=== PATIENT | female | born 2000 | race Caucasian/White ===

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

== ENCOUNTER 2018-02-13 16:36 | Emergency (ER) | payer MEDICAID ==
[~2018-02-13] VITALS: Ht 172.7 cm; Wt 56.8 kg
[~2018-02-13 16:36] MED LIST changes: +HYDR-4383 PO; -HYDR-569 PO
[2018-02-13] MEDS ORDERED: normal saline 1000ML IV soln IVB ONE (16:55)
[2018-02-13] MEDS ORDERED: ondansetron/PF 4mg/2ml inj IV ONE (16:55)
[2018-02-13 17:13] LABS: BASOPHILS # (AUTO) 0.1 X10'3 (0-0.2); BASOPHILS % (AUTO) 1.7 % (0-1); EOSINOPHILS % (AUTO) 0 % (0-6); HEMATOCRIT 42.1 % (35.0-45.0); HEMOGLOBIN 14.3 g/dl (12.0-16.0); LYMPHOCYTES # (AUTO) 1.6 X10'3 (1.1-4.8); LYMPHOCYTES % (AUTO) 19.9 % (21-51); MEAN PLATELET VOLUME 9.4 FL (7.4-10.4); MONOCYTES # (AUTO) 0.5 X10'3 (0-0.9); MONOCYTES % (AUTO) 6.1 % (2-12); NEUTROPHILS % (AUTO) 72.3 % (42-75); PLATELET COUNT 255 X10'3 (140-440); RED BLOOD COUNT 4.34 X10'6 (4.20-5.60); RED CELL DISTRIBUTION WIDTH 12.8 % (11.5-14.5); WHITE BLOOD COUNT 8.2 X10'3 (4.5-11.0)
[2018-02-13] MEDS ORDERED: pantoprazole 40 MG vial IV ONE (17:15)
[2018-02-13 17:17] VITALS: BP 135/92
[2018-02-13 17:23] LABS: URINE HCG NEGATIVE (NEG)
[2018-02-13 17:25] LABS: INR 1.1 INR; PROTHROMBIN TIME 11.5 SECONDS (9.0-12.0)
[2018-02-13 17:27] LABS: CLARITY,URINE CLOUDY (Clear); COLOR,URINE YELLOW (Yellow); GLUCOSE, URINE NEGATIVE (Neg); KETONES,URINE NEGATIVE (Neg); LEUKOCYTE ESTERASE ,URINE MODERATE (Neg); NITRITES, URINE NEGATIVE (Neg); OCCULT BLOOD,URINE NEGATIVE (Neg); PROTEIN,URINE TRACE mg/dl (Neg)
[2018-02-13 17:28] LABS: ALANINE AMINOTRANSFERASE 20 U/L (12-78); ALBUMIN 4.4 G/DL (3.4-5.0); ALBUMIN/GLOBULIN RATIO 1.5 (1.1-1.5); ALKALINE PHOSPHATASE 68 IU/L (20-180); ANION GAP 9 (8-16); ASPARTATE AMINO TRANSFERASE 16 U/L (10-37); BILIRUBIN,TOTAL 0.8 MG/DL (0.1-1.0); BLOOD UREA NITROGEN 11 MG/DL (7-18); BUN/CREATININE RATIO 13.3 (6.6-38.0); CHLORIDE 104 MMOL/L (99-107); CREATININE 0.83 MG/DL (0.40-0.90); GLUCOSE 90 MG/DL (70-104); POTASSIUM 3.3 MMOL/L (3.5-5.1); SODIUM 141 MMOL/L (135-145); TOTAL CARBON DIOXIDE 28.3 MMOL/L (24-32); TOTAL PROTEIN 7.4 G/DL (6.4-8.2); eGFR 89 ML/MIN
[2018-02-13 17:33] LABS: UA COLLECTION TYPE CLN CATCH MIDSTREAM
[2018-02-13 17:36] LABS: URINE AMPHETAMINE SCREEN NEGATIVE (Neg); URINE BARBITUATE SCREEN NEGATIVE (Neg); URINE BENZODIAZEPINES SCREEN NEGATIVE (Neg); URINE CANNABINOID SCREEN NEGATIVE (Neg); URINE COCAINE SCREEN NEGATIVE (Neg); URINE METHADONE SCREEN NEGATIVE (Neg); URINE OPIATE SCREEN NEGATIVE (Neg); URINE PHENCYCLIDINE SCREEN NEGATIVE (Neg)
[2018-02-13 17:39] LABS: WBC,URINE 30-50 /HPF (0-4)
[2018-02-13 17:40] LABS: BACTERIA,URINE 2+ /HPF (Neg); MUCUS STRANDS MODERATE /LPF (Neg); RBC,URINE 0-2 /HPF (0-2); SQUAMOUS EPITHELIAL CELL,UR MANY /LPF (FEW)
[2018-02-13] MEDS ORDERED: ketorolac trometh. 30mg/ml inj. IV ONE (17:45)
[2018-02-13] MEDS ORDERED: CefTRIAXone/D5W-Rocephin 1gm 50 ML IV ONE (17:45)
[2018-02-13] MEDS ORDERED: LOPE2CAP PO (18:34)
[2018-02-13] MEDS ORDERED: NAPR-996 PO (18:34)
[2018-02-13] MEDS ORDERED: ONDA8TAB9 PO (18:34)
[2018-02-13] MEDS ORDERED: NITR100C6 PO (18:34)
== END 2018-02-13 18:46 | disposition home or self-care (01) ==
LOC: ER 16:37
DX: K52.9 Noninfective gastroenteritis and colitis, unspecified (principal); R00.0 Tachycardia, unspecified; R09.89 Other specified symptoms and signs involving the circulatory and respiratory systems
CPT/HCPCS: 36415; 80053; 80305; 81001; 81025; 83690; 85025; 85610; 96361; 96365; 96375; 99284; C9113; J0696; J2405; J1885

== ENCOUNTER 2018-07-07 20:43 | Emergency (ER) | payer MEDICAID ==
[~2018-07-07] VITALS: Ht 172.7 cm; Wt 56.0 kg
[~2018-07-07 20:43] MED LIST changes: +LOPE2CAP PO; +NAPR-996 PO; +NITR100C6 PO
[2018-07-07 20:53] VITALS: BP 103/62
--- NOTE | 2018-07-08 02:34 | NUR ---
NO RESPONSE FROM LOBBY AFTER 3 ATTEMPTS TO ROOM. CALL PLACED TO NUMBER ON FILE. NUMBER RANG FOR A PERIOD WITH NO ANSWER. DR WATSON INFORMED
== END 2018-07-08 02:35 | disposition left against medical advice (07) ==
LOC: ER 20:43
DX: R42 Dizziness and giddiness (principal); Z53.21 Procedure and treatment not carried out due to patient leaving prior to being seen by health care provider

== ENCOUNTER 2018-11-18 09:46 | Emergency (ER) | payer MEDICAID ==
[~2018-11-18] VITALS: Ht 172.7 cm; Wt 59.8 kg
[2018-11-18 09:53] VITALS: BP 101/66
[2018-11-18 10:50] LABS: CLARITY,URINE SLIGHTLY CLOUDY (Clear); COLOR,URINE YELLOW (Yellow); GLUCOSE, URINE NEGATIVE (Neg); KETONES,URINE NEGATIVE (Neg); LEUKOCYTE ESTERASE ,URINE TRACE (Neg); NITRITES, URINE NEGATIVE (Neg); OCCULT BLOOD,URINE NEGATIVE (Neg); PROTEIN,URINE 30 mg/dl (Neg)
[2018-11-18 10:53] LABS: URINE HCG NEGATIVE (NEG)
[2018-11-18 10:59] LABS: UA COLLECTION TYPE CLN CATCH MIDSTREAM
[2018-11-18 11:00] LABS: BACTERIA,URINE FEW /HPF (Neg); MUCUS STRANDS MANY /LPF (Neg); RBC,URINE 0-2 /HPF (0-2); SQUAMOUS EPITHELIAL CELL,UR MANY /LPF (FEW)
--- NOTE | 2018-11-18 11:02 | NUR ---
UA REJECTED FOR CULTURE
[2018-11-18 11:06] LABS: BASOPHILS # (AUTO) 0.1 X10'3 (0-0.2); BASOPHILS % (AUTO) 0.6 % (0-1); EOSINOPHILS # (AUTO) 0.1 X10'3 (0-0.9); EOSINOPHILS % (AUTO) 0.7 % (0-6); HEMATOCRIT 42.8 % (35.0-45.0); LYMPHOCYTES # (AUTO) 2.5 X10'3 (1.1-4.8); LYMPHOCYTES % (AUTO) 27.2 % (21-51); MEAN CORPUSCULAR HEMOGLOBIN 33.9 PG (27.0-31.0); MEAN PLATELET VOLUME 9.5 FL (7.4-10.4); MONOCYTES # (AUTO) 0.6 X10'3 (0-0.9); MONOCYTES % (AUTO) 6.4 % (2-12); NEUTROPHILS % (AUTO) 65.1 % (42-75); PLATELET COUNT 221 X10'3 (140-440); RED BLOOD COUNT 4.42 X10'6 (4.20-5.60); WHITE BLOOD COUNT 9.3 X10'3 (4.5-11.0)
[2018-11-18 11:23] LABS: ALANINE AMINOTRANSFERASE 21 U/L (12-78); ALBUMIN 4.3 G/DL (3.4-5.0); ALBUMIN/GLOBULIN RATIO 1.2 (1.1-1.5); ALKALINE PHOSPHATASE 75 IU/L (20-180); ANION GAP 8 (8-16); ASPARTATE AMINO TRANSFERASE 13 U/L (10-37); BILIRUBIN,TOTAL 1.3 MG/DL (0.1-1.0); BLOOD UREA NITROGEN 9 MG/DL (7-18); BUN/CREATININE RATIO 10.1 (6.6-38.0); CALCIUM 9.3 MG/DL (8.5-10.1); CHLORIDE 105 MMOL/L (99-107); CREATININE 0.89 MG/DL (0.40-0.90); GLUCOSE 82 MG/DL (70-104); LIPASE 134 U/L (73-393); POTASSIUM 3.6 MMOL/L (3.5-5.1); SODIUM 141 MMOL/L (135-145); TOTAL CARBON DIOXIDE 28.4 MMOL/L (24-32); eGFR 81 ML/MIN
[2018-11-18] MEDS ORDERED: CEPH-572 PO (11:44)
[2018-11-18] MEDS ORDERED: ONDA4TAB6 PO (11:44)
== END 2018-11-18 12:08 | disposition home or self-care (01) ==
LOC: ER 09:46
DX: N39.0 Urinary tract infection, site not specified (principal); Z79.2 Long term (current) use of antibiotics; Z79.899 Other long term (current) drug therapy
CPT/HCPCS: 36415; 80053; 81001; 81025; 83690; 85025; 85610; 99283

== ENCOUNTER 2018-11-22 16:18 | Emergency (ER) | payer MEDICAID ==
[~2018-11-22] VITALS: Ht 172.7 cm; Wt 59.6 kg
[~2018-11-22 16:18] MED LIST changes: +CEPH-572 PO; +ONDA4TAB6 PO
[2018-11-22] MEDS ORDERED: acetaminophen 325mg tablet PO ONE (17:15)
[2018-11-22 18:00] LABS: URINE HCG NEGATIVE (NEG)
[2018-11-22 18:01] LABS: CLARITY,URINE SLIGHTLY CLOUDY (Clear); GLUCOSE, URINE NEGATIVE (Neg); KETONES,URINE TRACE mg/dl (Neg); LEUKOCYTE ESTERASE ,URINE TRACE (Neg); NITRITES, URINE NEGATIVE (Neg); OCCULT BLOOD,URINE NEGATIVE (Neg); PH,URINE 5.5 (4.8-8.0); PROTEIN,URINE 30 mg/dl (Neg)
[2018-11-22 18:11] LABS: COLOR,URINE DARK YELLOW (Yellow); UA COLLECTION TYPE CLN CATCH MIDSTREAM
[2018-11-22 18:14] LABS: RBC,URINE NONE SEEN /HPF (0-2)
[2018-11-22 18:15] LABS: BACTERIA,URINE FEW /HPF (Neg); MUCUS STRANDS MANY /LPF (Neg); SQUAMOUS EPITHELIAL CELL,UR MANY /LPF (FEW)
[2018-11-22 18:21] LABS: BASOPHILS # (AUTO) 0.1 X10'3 (0-0.2); BASOPHILS % (AUTO) 0.8 % (0-1); EOSINOPHILS % (AUTO) 0.5 % (0-6); HEMATOCRIT 42.3 % (35.0-45.0); HEMOGLOBIN 14.9 g/dl (12.0-16.0); LYMPHOCYTES # (AUTO) 2.3 X10'3 (1.1-4.8); LYMPHOCYTES % (AUTO) 23.6 % (21-51); MEAN CORPUSCULAR HEMOGLOBIN 33.5 PG (27.0-31.0); MEAN CORPUSCULAR HGB CONC 35.3 g/dL (33.0-36.5); MEAN CORPUSCULAR VOLUME 94.7 FL (78-98); MEAN PLATELET VOLUME 9.5 FL (7.4-10.4); MONOCYTES # (AUTO) 0.8 X10'3 (0-0.9); NEUTROPHILS # (AUTO) 6.6 X10'3 (1.8-7.7); NEUTROPHILS % (AUTO) 67.1 % (42-75); PLATELET COUNT 249 X10'3 (140-440); RED BLOOD COUNT 4.46 X10'6 (4.20-5.60); RED CELL DISTRIBUTION WIDTH 12.1 % (11.5-14.5); WHITE BLOOD COUNT 9.8 X10'3 (4.5-11.0)
[2018-11-22 18:44] LABS: ALANINE AMINOTRANSFERASE 16 U/L (12-78); ALBUMIN/GLOBULIN RATIO 1.1 (1.1-1.5); ALKALINE PHOSPHATASE 73 IU/L (20-180); ANION GAP 9 (8-16); ASPARTATE AMINO TRANSFERASE 15 U/L (10-37); BILIRUBIN,TOTAL 1.5 MG/DL (0.1-1.0); BLOOD UREA NITROGEN 9 MG/DL (7-18); CALCIUM 8.9 MG/DL (8.5-10.1); CHLORIDE 106 MMOL/L (99-107); GLUCOSE 83 MG/DL (70-104); POTASSIUM 3.6 MMOL/L (3.5-5.1); SODIUM 143 MMOL/L (135-145); TOTAL CARBON DIOXIDE 27.9 MMOL/L (24-32); TOTAL PROTEIN 7.5 G/DL (6.4-8.2); eGFR 80 ML/MIN
[2018-11-22 19:38] VITALS: BP 98/62
== END 2018-11-22 19:39 | disposition home or self-care (01) ==
LOC: ER 16:19
DX: K92.1 Melena (principal); Z79.2 Long term (current) use of antibiotics; Z79.899 Other long term (current) drug therapy
CPT/HCPCS: 36415; 74176; 80053; 81001; 81025; 85025; 85610; 99284

== ENCOUNTER 2019-06-08 15:10 | Emergency (ER) | payer MEDICAID ==
[~2019-06-08] VITALS: Ht 167.6 cm; Wt 60.5 kg
[~2019-06-08 15:10] MED LIST changes: -CEPH-572 PO
[2019-06-08 15:23] VITALS: BP 115/63
[2019-06-08] MEDS ORDERED: TRIA15CR61 TOP (15:32)
--- NOTE | 2019-06-08 15:55 | NUR ---
Pt complains of burning with urination x2 weeks and was too embarassed to tell the Provider. Provider notified, orders obtained.
[2019-06-08 16:05] LABS: CLARITY,URINE CLOUDY (Clear); COLOR,URINE YELLOW (Yellow); GLUCOSE, URINE NEGATIVE (Neg); KETONES,URINE NEGATIVE (Neg); LEUKOCYTE ESTERASE ,URINE MODERATE (Neg); NITRITES, URINE NEGATIVE (Neg); OCCULT BLOOD,URINE NEGATIVE (Neg); PROTEIN,URINE NEGATIVE (Neg); UA COLLECTION TYPE CLN CATCH MIDSTREAM; UROBILINOGEN,URINE 0.2 E.U/dL (0.2-1.0)
[2019-06-08 16:11] LABS: MUCUS STRANDS FEW /LPF (Neg); SQUAMOUS EPITHELIAL CELL,UR FEW /LPF (FEW); WBC,URINE TNTC /HPF (0-4)
[2019-06-08 16:12] LABS: BACTERIA,URINE 2+ /HPF (Neg); WBC CLUMPS,URINE MODERATE /HPF (NEGATIVE)
[2019-06-08] MEDS ORDERED: CEPH-572 PO (16:23)
== END 2019-06-08 16:45 | disposition home or self-care (01) ==
LOC: ER 15:10
DX: L20.9 Atopic dermatitis, unspecified (principal); N39.0 Urinary tract infection, site not specified; R11.2 Nausea with vomiting, unspecified; R42 Dizziness and giddiness; Z79.2 Long term (current) use of antibiotics; Z79.899 Other long term (current) drug therapy
CPT/HCPCS: 81001; 87077; 87088; 87186; 99283

== ENCOUNTER 2019-06-13 22:08 | Emergency (ER) | payer MEDICAID ==
[~2019-06-13] VITALS: Ht 172.7 cm; Wt 56.8 kg
[~2019-06-13 22:08] MED LIST changes: +CEPH-572 PO; +TRIA15CR61 TOP
--- NOTE | 2019-06-13 22:45 | NUR ---
lamp developer to do ekg
--- NOTE | 2019-06-14 00:45 | NUR ---
pt asked to go to [facility] bathroom . she jumped up quickly and went to hallway looking for restroom with steady gait
[2019-06-14 01:19] LABS: BASOPHILS # (AUTO) 0.1 X10'3 (0-0.2); EOSINOPHILS # (AUTO) 0.1 X10'3 (0-0.9); EOSINOPHILS % (AUTO) 0.6 % (0-6); HEMATOCRIT 40.4 % (35.0-45.0); HEMOGLOBIN 14.2 g/dl (12.0-16.0); LYMPHOCYTES # (AUTO) 3.3 X10'3 (1.1-4.8); LYMPHOCYTES % (AUTO) 28.3 % (21-51); MEAN CORPUSCULAR HEMOGLOBIN 34.1 PG (27.0-31.0); MEAN CORPUSCULAR HGB CONC 35.1 g/dL (33.0-36.5); MEAN CORPUSCULAR VOLUME 97.3 FL (78-98); MEAN PLATELET VOLUME 8.7 FL (7.4-10.4); MONOCYTES # (AUTO) 0.5 X10'3 (0-0.9); MONOCYTES % (AUTO) 4.5 % (2-12); NEUTROPHILS # (AUTO) 7.7 X10'3 (1.8-7.7); NEUTROPHILS % (AUTO) 65.6 % (42-75); PLATELET COUNT 258 X10'3 (140-440); RED BLOOD COUNT 4.15 X10'6 (4.20-5.60); RED CELL DISTRIBUTION WIDTH 13.1 % (11.5-14.5); WHITE BLOOD COUNT 11.7 X10'3 (4.5-11.0)
[2019-06-14 01:33] LABS: CLARITY,URINE SLIGHTLY CLOUDY (Clear); COLOR,URINE YELLOW (Yellow); GLUCOSE, URINE NEGATIVE (Neg); KETONES,URINE NEGATIVE (Neg); LEUKOCYTE ESTERASE ,URINE SMALL (Neg); NITRITES, URINE NEGATIVE (Neg); OCCULT BLOOD,URINE NEGATIVE (Neg); PH,URINE 6.5 (4.8-8.0); PROTEIN,URINE NEGATIVE (Neg); URINE HCG NEGATIVE (NEG)
[2019-06-14 01:36] LABS: D-DIMER 0.68 MG/L FEU (0-0.50)
[2019-06-14 01:44] LABS: UA COLLECTION TYPE CLN CATCH MIDSTREAM
--- NOTE | 2019-06-14 01:45 | NUR ---
lab called about urine cx / notified janice middleton that cx was not able to be ran , janice stated another speciamn does not need to be obtained
[2019-06-14 01:46] LABS: BACTERIA,URINE 1+ /HPF (Neg); RBC,URINE NONE SEEN /HPF (0-2); SQUAMOUS EPITHELIAL CELL,UR MANY /LPF (FEW); WBC,URINE 30-50 /HPF (0-4)
[2019-06-14] MEDS ORDERED: iohexol 300mg/ml 100ml inj. ONE (02:06)
--- NOTE | 2019-06-14 02:30 | NUR ---
PT TO CT VIA WHEEL CHAIR
[2019-06-14 02:39] LABS: ALANINE AMINOTRANSFERASE 22 U/L (12-78); ALBUMIN 4.2 G/DL (3.4-5.0); ALBUMIN/GLOBULIN RATIO 1.3 (1.1-1.5); ALKALINE PHOSPHATASE 71 IU/L (20-180); ANION GAP 8 (8-16); ASPARTATE AMINO TRANSFERASE 21 U/L (10-37); BILIRUBIN,TOTAL 0.4 MG/DL (0.1-1.0); BLOOD UREA NITROGEN 15 MG/DL (7-18); BUN/CREATININE RATIO 20.3 (6.6-38.0); CALCIUM 9.5 MG/DL (8.5-10.1); CHLORIDE 105 MMOL/L (99-107); CREATININE 0.74 MG/DL (0.40-0.90); GLUCOSE 90 MG/DL (70-104); POTASSIUM 3.4 MMOL/L (3.5-5.1); SODIUM 143 MMOL/L (135-145); TOTAL CARBON DIOXIDE 30.1 MMOL/L (24-32); TOTAL PROTEIN 7.4 G/DL (6.4-8.2); eGFR > 90 ML/MIN
[2019-06-14] MEDS ORDERED: NITR100C6 PO (02:46)
[2019-06-14] MEDS ORDERED: PHEN-716 PO (02:46)
[2019-06-14] MEDS ORDERED: potassium Cl 20 mEq SR tablet PO ONE (02:50)
[2019-06-14 03:42] VITALS: BP 108/71
== END 2019-06-14 03:32 | disposition home or self-care (01) ==
LOC: ER 22:08
DX: R42 Dizziness and giddiness (principal); N39.0 Urinary tract infection, site not specified; R07.89 Other chest pain; Z79.899 Other long term (current) drug therapy; Z79.2 Long term (current) use of antibiotics
CPT/HCPCS: 36415; 71045; 71275; 80053; 81001; 81025; 84484; 85025; 85379; 93005; 99285; Q9967

== ENCOUNTER 2020-07-23 17:54 | Emergency (ER) | payer MEDICAID ==
[~2020-07-23] VITALS: Ht 172.7 cm; Wt 58.0 kg
[~2020-07-23 17:54] MED LIST changes: -TRIA15CR61 TOP
[2020-07-23 18:39] VITALS: BP 112/68
[2020-07-23 18:58] LABS: COLOR,URINE YELLOW (Yellow); GLUCOSE, URINE NEGATIVE (Neg); KETONES,URINE NEGATIVE (Neg); LEUKOCYTE ESTERASE ,URINE TRACE (Neg); NITRITES, URINE NEGATIVE (Neg); OCCULT BLOOD,URINE NEGATIVE (Neg); PH,URINE 7.5 (4.8-8.0); PROTEIN,URINE NEGATIVE (Neg)
[2020-07-23 18:59] LABS: URINE HCG NEGATIVE (NEG)
[2020-07-23 19:08] LABS: UA COLLECTION TYPE CLN CATCH MIDSTREAM
[2020-07-23 19:09] LABS: CLARITY,URINE SLIGHTLY CLOUDY (Clear)
[2020-07-23 19:10] LABS: AMORPHOUS PHOSPHATES 1+; BACTERIA,URINE FEW /HPF (Neg); RBC,URINE NONE SEEN /HPF (0-2); SQUAMOUS EPITHELIAL CELL,UR FEW /LPF (FEW); WBC,URINE 0-4 /HPF (0-4)
[2020-07-23] MEDS ORDERED: CIPR-202 PO (19:35)
== END 2020-07-23 20:00 | disposition home or self-care (01) ==
LOC: ER 17:55
DX: N39.0 Urinary tract infection, site not specified (principal); R10.84 Generalized abdominal pain; Z79.2 Long term (current) use of antibiotics; Z79.899 Other long term (current) drug therapy
CPT/HCPCS: 81001; 81025; 87088; 99283

== ENCOUNTER 2020-09-12 16:41 | Emergency (ER) | payer MEDICAID ==
[~2020-09-12] VITALS: Ht 172.7 cm; Wt 59.1 kg
[2020-09-12 16:55] VITALS: BP 96/65
[2020-09-12] MEDS ORDERED: acetaminophen 325mg tablet PO ONE (17:10)
[2020-09-12] MEDS ORDERED: DEC4T PO (17:23)
[2020-09-12] MEDS ORDERED: AZIT500T PO (17:23)
[2020-09-12] MEDS ORDERED: ALBU6.7H9 INH (17:23)
[2020-09-12] MEDS ORDERED: dexamethasone sod phosphate 10mg/ml inj IM STA (17:24)
== END 2020-09-12 17:44 | disposition home or self-care (01) ==
LOC: ER 16:42
DX: U07.1 COVID-19 (principal); J12.82 Pneumonia due to coronavirus disease 2019; Z79.899 Other long term (current) drug therapy
CPT/HCPCS: 71045; 96372; 99283; J1100

== ENCOUNTER → 2020-11-27 | Emergency (ER) | payer MEDICAID ==
[~2020-11-27] VITALS: Ht 172.7 cm; Wt 49.5 kg
[~2020-11-27] MED LIST changes: +ALBU6.7H9 INH; +IBUP-1984 PO; +ketorolac tromethamine 15mg/ml inj. IM ONE; +normal saline 1000ML IV soln IVB ONE
[2020-11-27 21:54] VITALS: BP 106/66
[2020-11-27 22:47] LABS: CLARITY,URINE CLEAR (Clear); COLOR,URINE YELLOW (Yellow); GLUCOSE, URINE NEGATIVE (Neg); KETONES,URINE NEGATIVE (Neg); LEUKOCYTE ESTERASE ,URINE NEGATIVE (Neg); NITRITES, URINE NEGATIVE (Neg); OCCULT BLOOD,URINE NEGATIVE (Neg); PROTEIN,URINE NEGATIVE (Neg)
[2020-11-27 22:55] LABS: URINE HCG NEGATIVE (NEG)
[2020-11-27 23:08] LABS: UA COLLECTION TYPE CLN CATCH MIDSTREAM
[2020-11-27 23:13] LABS: BASOPHILS # (AUTO) 0.1 X10'3 (0-0.2); BASOPHILS % (AUTO) 0.8 % (0-1); EOSINOPHILS # (AUTO) 0.1 X10'3 (0-0.9); EOSINOPHILS % (AUTO) 1.1 % (0-6); HEMATOCRIT 42.8 % (35.0-45.0); HEMOGLOBIN 14.8 g/dl (12.0-16.0); LYMPHOCYTES # (AUTO) 2.4 X10'3 (1.1-4.8); LYMPHOCYTES % (AUTO) 29.3 % (21-51); MEAN CORPUSCULAR HEMOGLOBIN 34.2 PG (27.0-31.0); MEAN CORPUSCULAR HGB CONC 34.5 g/dL (33.0-36.5); MEAN CORPUSCULAR VOLUME 99.1 FL (78-98); MEAN PLATELET VOLUME 9.3 FL (7.4-10.4); MONOCYTES # (AUTO) 0.6 X10'3 (0-0.9); MONOCYTES % (AUTO) 7.2 % (2-12); NEUTROPHILS # (AUTO) 5.1 X10'3 (1.8-7.7); NEUTROPHILS % (AUTO) 61.6 % (42-75); PLATELET COUNT 276 X10'3 (140-440); RED BLOOD COUNT 4.32 X10'6 (4.20-5.60); RED CELL DISTRIBUTION WIDTH 12.7 % (11.5-14.5); WHITE BLOOD COUNT 8.3 X10'3 (4.5-11.0)
[2020-11-27 23:21] LABS: ALANINE AMINOTRANSFERASE 30 U/L (12-78); ALBUMIN 4.3 G/DL (3.4-5.0); ALBUMIN/GLOBULIN RATIO 1.3 (1.1-1.5); ALKALINE PHOSPHATASE 67 IU/L (46-116); ANION GAP 9 (8-16); ASPARTATE AMINO TRANSFERASE 19 U/L (10-37); BILIRUBIN,TOTAL 0.5 MG/DL (0.1-1.0); BLOOD UREA NITROGEN 7 MG/DL (7-18); BUN/CREATININE RATIO 10.4 (6.6-38.0); CALCIUM 8.6 MG/DL (8.5-10.1); CHLORIDE 107 MMOL/L (99-107); CREATININE 0.67 MG/DL (0.40-0.90); GLUCOSE 73 MG/DL (70-104); POTASSIUM 3.4 MMOL/L (3.5-5.1); SODIUM 144 MMOL/L (135-145); TOTAL CARBON DIOXIDE 27.7 MMOL/L (24-32); TOTAL PROTEIN 7.6 G/DL (6.4-8.2); eGFR > 90 ML/MIN
== END | disposition home or self-care (01) ==
LOC: ER 21:50
DX: N92.0 Excessive and frequent menstruation with regular cycle (principal); R30.0 Dysuria; Z79.2 Long term (current) use of antibiotics; Z79.899 Other long term (current) drug therapy
CPT/HCPCS: 36415; 80053; 81003; 81025; 85025; 99283; J7030

== ENCOUNTER 2021-01-08 16:39 | Emergency (ER) | payer MEDICAID ==
[~2021-01-08] VITALS: Ht 175.3 cm; Wt 61.8 kg
[~2021-01-08 16:39] MED LIST changes: -IBUP-1984 PO; -ketorolac tromethamine 15mg/ml inj. IM ONE; -normal saline 1000ML IV soln IVB ONE
[2021-01-08 18:10] VITALS: BP 108/70
[2021-01-08] MEDS ORDERED: IBUP-1984 PO (18:13)
[2021-01-08] MEDS ORDERED: AMOX-422 PO (18:13)
== END 2021-01-08 18:31 | disposition home or self-care (01) ==
LOC: ER 16:40
DX: K04.7 Periapical abscess without sinus (principal); K02.9 Dental caries, unspecified; Z79.2 Long term (current) use of antibiotics; Z79.899 Other long term (current) drug therapy
CPT/HCPCS: 99283

== ENCOUNTER 2022-10-30 17:22 | Emergency (ER) | payer MEDICAID ==
[~2022-10-30] VITALS: Ht 175.3 cm; Wt 70.5 kg
[~2022-10-30 17:22] MED LIST changes: +ALBU6.7H14 INH; -ALBU6.7H9 INH
[2022-10-30 17:35] VITALS: BP 111/62
[2022-10-30] MEDS ORDERED: PRED10TA PO (17:43)
[2022-10-30] MEDS ORDERED: TRIA15CR61 TOP (17:43)
[2022-10-30] MEDS ORDERED: CEPH-585 PO (17:43)
== END 2022-10-30 17:55 | disposition home or self-care (01) ==
LOC: ER 17:23
DX: L03.113 Cellulitis of right upper limb (principal); L03.114 Cellulitis of left upper limb
CPT/HCPCS: 99283

== ENCOUNTER 2022-11-04 11:11 | Emergency (ER) | payer MEDICAID ==
[~2022-11-04] VITALS: Ht 175.3 cm; Wt 69.0 kg
[~2022-11-04 11:11] MED LIST changes: +CEPH-585 PO; +PRED10TA PO; +TRIA15CR61 TOP
[2022-11-04 11:12] VITALS: BP 106/74
== END 2022-11-04 11:44 | disposition home or self-care (01) ==
LOC: ER 11:11
DX: L03.119 Cellulitis of unspecified part of limb (principal); R10.30 Lower abdominal pain, unspecified
CPT/HCPCS: 99282